=== PATIENT | female | born 1950 | race Caucasian/White ===

== ENCOUNTER → 2020-04-20 09:55 | Outpatient (BNVA) | payer MEDICARE, MEDICAID, SELFPAY | PROVIDERS: PCP Emergency Medicine; Referring Provider Emergency Medicine; Visit Provider Orthopaedic Surgery | DX: Z76.89 Persons encountering health services in other specified circumstances (principal) ==

== ENCOUNTER 2022-03-22 12:54 | Outpatient (REF) | payer MEDICARE, MEDICAID, SELFPAY ==
--- NOTE | ~2022-03-22 | MM_ITS ---
EXAMINATION: BONE DENSITOMETRY CLINICAL INDICATION: Asymptomatic menopausal state. COMPARISON: Baseline BD dated 06/05/2019. TECHNIQUE: Using a [employer] DXA System (software version: 13.1) manufactured by [employer], dual-energy x-ray absorptiometry was performed of the lumbar spine and left hip. The images are of good technical quality. Summary results are attached. FINDINGS: AP SPINE L1-L4: Current: BMD 1.128 g/cm2, Z-score 1.0, T-score -0.4, normal, 2.3% increase from baseline (<5% change is not significant). Baseline: BMD 1.103 g/cm2. LEFT FEMUR, NECK: Current: BMD 0.965 g/cm2, Z-score 1.0, T-score -0.5, normal. Baseline: BMD 0.971 g/cm2. LEFT FEMUR, TOTAL: Current: BMD 1.168 g/cm2, Z-score 2.6, T-score 1.3, normal, 2.3% increase from baseline (<5% change is not significant). Baseline: BMD 1.103 g/cm2. IDENTIFIED RISK FACTORS: Menopause, history of fracture (adult). HISTORY OF FRACTURE: Femur. MEDICATIONS: None listed. MM/XR DEXA axial skeleton IMPRESSION: 1. DIAGNOSIS: Normal bone density based on the lowest T-score value of -0.5 in the femoral neck applying World Health Organization criteria. 2. 10-YEAR FRACTURE RISK PREDICTION, FRAX: According to the guidelines, FRAX calculation should only be performed on patients in the osteopenia bone density category. Therefore, FRAX was not performed on this patient. 3. Treatment Recommendations: NOF guidelines recommend consideration for treatment in postmenopausal women and men age 50 and older presenting with the following: -A hip or vertebral (clinical or morphometric) fracture. -T-score less than or equal to -2.5 at the femoral neck or spine after appropriate evaluation to exclude secondary causes. -Low bone mass at the hip or spine and a 10-year fracture probability by FRAX of greater than or equal to 3% for hip fracture or greater than or equal to 20% for major osteoporotic fracture based on the [place] adapted WHO algorithm. 4. Other Recommendations: All treatment decisions require clinical judgment and consideration of individual patient factors, including patient preferences, comorbidities, previous drug use, risk factors not captured in the FRAX model (e.g. frailty, falls, vitamin D deficiency, increased bone turnover, interval significant decline in bone density) and possible under or overestimation of fracture risk by FRAX. FUTURE SCAN RECOMMENDATION: People with diagnosed cases of osteoporosis or at high risk for fracture should have regular bone mineral density tests. For patients eligible for Medicare, routine testing is allowed once every 2 years. The testing frequency can be increased to one year for patients who have rapidly progressing disease, those who are receiving or discontinuing medical therapy to restore bone mass, or have additional risk factors.
--- NOTE | ~2022-03-22 | MM_ITS ---
EXAMINATION: MM SCREENING DIGITAL BREAST TOMOSYNTHESIS, BILATERAL CLINICAL INFORMATION: Screening. Asymptomatic. The lifetime risk of breast cancer based on the Tyrer-Cuzick Model is 11%. COMPARISON: Mammography: 06/05/2019, outside mammography 03/21/2015 ([facility]). TECHNIQUE: Digital breast tomosynthesis is performed in both the craniocaudal and mediolateral oblique views along with computer-aided detection (CAD). Synthesized 2D images are generated from the tomosynthesis. FINDINGS: The breasts are heterogeneously dense, which may obscure small masses (ACR BI-RADS breast composition Category c). Parenchymal pattern is similar to prior studies and there is no interval mass or architectural abnormality or developing density. Again, there is a small intramammary node mid outer right breast on CC view. The axilla and skin contours are unremarkable. The right MLO view shows round calcifications mid lower right breast, lesser in number on CC view central aspect. Similarly, there are interval round calcifications anterior central left breast on MLO view but no grouped calcifications appreciated on left CC view. Patient will be recalled for additional imaging. MM/MM tomosynthesis screening BI IMPRESSION: Right: -Grouped round calcifications 6:00 position. -Otherwise unremarkable. Left: -Calcifications round retroareolar breast on MLO view. -Otherwise unremarkable. ASSESSMENT: BI-RADS 0: Incomplete - Need Additional Imaging Evaluation RECOMMENDATION: 1. Additional views of the bilateral breasts (magnification CC, magnification ML). 2. Radiology department staff will contact the patient for additional imaging. This patient's information was entered into a reminder system with a target due date for their next mammogram.
== END 2022-03-22 12:55 | disposition home or self-care (01) ==
LOC: HO.MAMMO 12:54
PROVIDERS: PCP Registered Nurse; Visit Provider Registered Nurse
DX: Z12.31 Encounter for screening mammogram for malignant neoplasm of breast (principal); Z13.820 Encounter for screening for osteoporosis; Z78.0 Asymptomatic menopausal state
CPT/HCPCS: 77063; 77067; 77080

== ENCOUNTER 2022-04-03 10:57 | Outpatient (REF) | payer MEDICARE, MEDICAID, SELFPAY ==
--- NOTE | ~2022-04-03 | MM_ITS ---
EXAMINATION: MM DIAGNOSTIC DIGITAL MAMMOGRAPHY, BILATERAL CLINICAL INFORMATION: Recall from screening for question of new grouped round calcifications 6:00 right breast and retroareolar left breast on synthesized 2-D images. COMPARISON: Digital breast tomosynthesis 03/22/2022, 06/05/2019. TECHNIQUE: Digital mammography is performed in the following views: Bilateral magnification CC, bilateral magnification ML. FINDINGS: The breasts are heterogeneously dense, which may obscure small masses (ACR BI-RADS breast composition Category c). Breast tissue composition borders on average fibroglandular in the areas of interest. Additional magnification views right breast show a few incidental small round calcifications central and lower breast without focal grouping or pleomorphic types or ductal distribution. Additional magnification views left breast demonstrate a few scattered small round calcifications retroareolar breast. There is no focal grouping or pleomorphic types or ductal distribution. Results are discussed with the patient at time of visit. MM/MM added views BI IMPRESSION: Additional views show no focal grouped or pleomorphic calcifications. Finding on recent synthesized images at screening are primarily related to pseudo calcifications from digital processing artifact. ASSESSMENT: BI-RADS 2: Benign RECOMMENDATION: Routine annual mammography screening. This patient's information was entered into a reminder system with a target due date for their next mammogram.
== END 2022-04-03 10:58 | disposition home or self-care (01) ==
LOC: HO.MAMMO 10:57
PROVIDERS: PCP Registered Nurse; Visit Provider Registered Nurse
DX: R92.1 Mammographic calcification found on diagnostic imaging of breast (principal)
CPT/HCPCS: 77066

== ENCOUNTER 2023-03-28 11:47 | Outpatient (REF) | payer MEDICARE, MEDICAID, SELFPAY ==
--- NOTE | ~2023-03-28 | MM_ITS ---
EXAMINATION: MM SCREENING DIGITAL BREAST TOMOSYNTHESIS, BILATERAL CLINICAL INFORMATION: Screening. Asymptomatic. COMPARISON: Mammography: 04/03/2022, 03/22/2022, 06/05/2019, (03/21/2015, 11/06/2012 [facility]). TECHNIQUE: Digital breast tomosynthesis is performed in both the craniocaudal and mediolateral oblique views along with computer-aided detection (CAD). Synthesized 2D images are generated from the tomosynthesis. FINDINGS: The breasts are heterogeneously dense, which may obscure small masses (ACR BI-RADS breast composition Category c). Again, there is an intramammary lymph node mid outer right breast the CC projection. This is unchanged. There are scattered benign type calcifications. No suspicious grouping. The overall parenchymal pattern is unchanged from prior exams. No skin or axillary changes. No suspicious masses or regions of architectural distortion. MM/MM tomosynthesis screening BI IMPRESSION: No significant changes from prior exam. No evidence of malignancy in either breast. Stable benign findings. ASSESSMENT: BI-RADS BI-RADS 2 - Benign Findings RECOMMENDATION: Routine annual mammography screening. 1 year F/U This examination should not preclude the clinical evaluation of a suspicious palpable abnormality. This patient's information was entered into a reminder system with a target due date for their next mammogram.
== END 2023-03-28 11:48 | disposition home or self-care (01) ==
LOC: HO.MAMMO 11:47
PROVIDERS: Visit Provider Registered Nurse
DX: Z12.31 Encounter for screening mammogram for malignant neoplasm of breast (principal)
CPT/HCPCS: 77063; 77067

== ENCOUNTER → 2023-03-28 12:15 | Outpatient (BNV) | payer MEDICARE, MEDICAID, SELFPAY | PROVIDERS: Visit Provider Radiology Diagnostic Radiology | DX: Z12.31 Encounter for screening mammogram for malignant neoplasm of breast (principal) | CPT/HCPCS: 77063; 77067 ==

== ENCOUNTER 2023-05-20 11:18 | Outpatient (REF) | payer MEDICARE, MEDICAID, SELFPAY ==
[2023-05-20 14:40] LABS: Iron 73 mcg/dL (30-160); Percent Iron Saturation 23 % (15-50); Total Iron Binding Capacity 315 mcg/dL (228-428); Unsaturated Iron Binding 242 ug/dL
[2023-05-20 14:55] LABS: Ferritin 166 ng/mL (10-250)
== END 2023-05-20 11:19 | disposition home or self-care (01) ==
LOC: HO.CHCLDS 11:18
PROVIDERS: Visit Provider Registered Nurse
DX: G25.81 Restless legs syndrome (principal); F45.8 Other somatoform disorders
CPT/HCPCS: 36415; 82728; 83540

== ENCOUNTER 2023-11-05 09:58 | Day surgery (SDC) | payer MEDICARE, MEDICAID, SELFPAY ==
--- NOTE | 2023-11-05 11:52 | MHC.SHP ---
Pre-Procedural Eval Section A - 24 Hr Update-Section A only Date of Service: 11/05/23 The patient is an INPATIENT: No Changes since office visit: No Cold of Flu in the past 2 weeks, No New Medical Problems, No Changes in Medication and No Patient answered all questions The patient has been examined within 24 hours of the surgical procedure. The History & Physical has been completed within 30 days and I have reviewed it.: Yes Section B - Complete if H&P > 30 days Chief Complaint: Other fecal abnormalities Allergies: Allergies Allergy/AdvReac Type Severity Reaction Status Date / Time bee pollen Allergy Unknown Verified 11/04/23 10:31 No Known Drug Allergies Allergy Unknown Verified 11/04/23 10:31 poison debby extract Allergy Unknown Verified 11/04/23 10:31 Plan I have reviewed the history and physical and performed a pertinent physical examination on my patient. No changes have occurred unless specified. Time Spent With Patient Time: Total time managing care of this patient today ____ minutes.
[2023-11-05 11:54] VITALS: BP 129/68; PULSE 87; RESP 18; TEMP 36.1; O2SAT 98; BMI 24.9
--- NOTE | 2023-11-05 12:43 | P.CONAN_ITS ---
FORMERLY [facility], [facility] Past Medical History Medical History (Updated 11/05/23 @ 12:14 by Caitie Jones RN) Femur fracture, right Osteoarthritis Hypertension Family History Family history of problems with anesthesia: No Surgical History Surgical History (Updated 11/05/23 @ 12:14 by Caitie Jones RN) H/O knee surgery Hx of colonoscopy History of Problems with Anesthesia: No Social History Social History Patient Tobacco Use Status: Never used Tobacco Are you DNR?: No Advance Directives: No Advance Directives Information Provided: Yes Nutrition Risks: No Nutritional Risk Meds Allergies Allergy/AdvReac Type Severity Reaction Status Date / Time bee pollen Allergy Unknown Verified 11/04/23 10:31 No Known Drug Allergies Allergy Unknown Verified 11/04/23 10:31 poison debby extract Allergy Unknown Verified 11/04/23 10:31 Home Medications ?Medication ?Instructions ?Recorded ?Confirmed ?Last Taken ?Type bupropion HCl 150 mg tablet,12 hr 150 mg PO QAM 04/19/20 11/05/23 11/04/23 History sustained-release (Wellbutrin SR) tramadol 50 mg tablet 50 mg PO DAILY 04/19/20 11/05/23 Unknown History doxepin 10 mg capsule 10 mg PO BEDTIME 11/05/23 11/05/23 10/08/23 History oxybutynin chloride 5 mg 5 mg PO DAILY 11/05/23 11/05/23 11/02/23 History tablet,extended release 24 hr topiramate 25 mg tablet 25 mg PO DAILY 11/05/23 11/05/23 11/02/23 History Exam Height,Weight and Vital Signs: Height 5 ft 7 in Weight 72.257 kg Last Vital Signs Temp 97 F 11/05/23 11:54 Pulse 87 11/05/23 11:54 Resp 18 11/05/23 11:54 BP 129/68 11/05/23 11:54 Pulse Ox 98 11/05/23 11:54 O2 Del Method Room Air 11/05/23 11:54 Airway Mallampati Class: II (caps front,) TM Dist: >3cm Neck ROM: Full Partial: Upper Heart: rrr Lungs: cta Assessment and Plan Assessment Anesthesia Assessment: Anesthesia Plan Discussed and Chart Reviewed Final Anesthetic Review Family History of Problems with Anesthesia: No History of Problems with Anesthesia: No NPO: Yes ASA Class: II Final Preanesthetic Review: No Changes in Pt Med Stat, Meds/Allgs Chart Reviewed and Consent Obtained/Reviewed Patient Risk: Low Procedure Risk: Low Anesthetic Plan Anesthetic Plan: MAC: Disposition: Standard PACU
[2023-11-05 13:23] VITALS: BP 85/43; PULSE 76; RESP 16; TEMP 36.3; O2SAT 96
[2023-11-05 13:38] VITALS: BP 99/62; PULSE 70; RESP 16; O2SAT 96
--- NOTE | 2023-11-05 13:50 | OP_ITS ---
DATE OF SERVICE: 11/05/2023 SURGEON: Robby Mcclendon MD INDICATIONS: Abnormal findings in stool. PREOPERATIVE DIAGNOSIS: POSTOPERATIVE DIAGNOSIS: PROCEDURE PERFORMED: Colonoscopy to the terminal ileum with biopsy. ESTIMATED BLOOD LOSS: COMPLICATIONS: ANESTHESIA: Monitored anesthesia care. ASSISTANTS: SPECIMENS: DESCRIPTION OF PROCEDURE: A history and physical was performed. The risks and benefits of the procedure were explained to the patient and informed consent was obtained. The patient was placed in the left lateral decubitus position. A digital rectal exam was performed and was found to be normal. The Olympus pediatric video colonoscope was introduced into the rectum and advanced to the cecum. The cecum was identified by transillumination, palpation, and identification of ileocecal valve. Examination was performed and the scope was removed. She tolerated the procedure well and was returned to recovery area in stable condition. FINDINGS: The terminal ileum was normal. The visualized colonic mucosa was within normal limits without evidence of masses or ulcers. There was some mild nonspecific erythema in the rectum, which could be prep related. This was biopsied. A few diverticula were seen in the sigmoid, which was somewhat tortuous. Retroflexed examination showed some small internal hemorrhoids. IMPRESSION: Normal colonoscopy. RECOMMENDATION: Follow up the biopsy results. Repeat colonoscopy in 10 yrs, for screening, optional after age 75. MD KAYLA Lopez/JANNA / [id number] MTDD
[2023-11-05 13:53] VITALS: BP 121/58; PULSE 72; RESP 16; TEMP 36.3; O2SAT 97
== END 2023-11-05 14:27 | disposition home or self-care (01) ==
PROVIDERS: PCP Registered Nurse; Visit Provider Internal Medicine Gastroenterology
PROC: 0DJD8ZZ Inspection of Lower Intestinal Tract, Via Natural or Artificial Opening Endoscopic (ICD-10-PCS; CPT 45378; principal; 2023-11-05 13:20)
DX: R19.5 Other fecal abnormalities (principal); K64.8 Other hemorrhoids; I10 Essential (primary) hypertension; Z79.899 Other long term (current) drug therapy; Q43.8 Other specified congenital malformations of intestine
CPT/HCPCS: 45380; 88305; J2704

== ENCOUNTER 2024-04-14 11:55 | Outpatient (REF) | payer MEDICARE, MEDICAID, SELFPAY ==
[2024-04-16 03:54] LABS: Lyme Blot 9.27 index
[2024-04-16 14:52] LABS: Lyme Abs Screen POSITIVE
[2024-04-16 22:18] LABS: 18 KD (IgG) Band REACTIVE; 23 KD (IgG) Band NON-REACTIVE; 23 KD (IgM) Band REACTIVE; 28 KD (IgG) Band REACTIVE; 30 KD (IgG) Band REACTIVE; 39 KD (IgM) Band REACTIVE; 39KD (IgG) Band REACTIVE; 41 KD (IgM) Band REACTIVE; 41KD (IgG) Band REACTIVE; 45 KD (IgG) Band REACTIVE; 58 KD (IgG) Band REACTIVE; 66 KD (IgG) Band REACTIVE; 93 KD (IgG) Band REACTIVE; Lyme IgG Blot Interp POSITIVE (NEGATIVE); Lyme IgM Blot Interp POSITIVE (NEGATIVE)
== END 2024-04-14 11:56 | disposition home or self-care (01) ==
LOC: HO.HHCL 11:55
PROVIDERS: Visit Provider Family Medicine
DX: A69.23 Arthritis due to Lyme disease (principal)
CPT/HCPCS: 36415; 86617; 86618

== ENCOUNTER 2024-05-07 14:41 | Outpatient (REF) | payer MEDICARE, MEDICAID, SELFPAY ==
[2024-05-07 18:04] LABS: C Reactive Protein 0.51 mg/dL (< or = 0.50)
[2024-05-07 18:37] LABS: Erythrocyte Sedimentation Rate 33 MM/HR (0-20)
--- OUTSIDE RECORDS SUMMARY | 2024-05-13 04:07 | XMS_ITS ---
Author Organization [facility] Address [address] [place] [address] Care Team Providers Care Music Mixer Name Role Phone KATRIN SUE MD Primary Care Provider UnavailRobby Wilkerson Jr [phone] REASON FOR VISIT abnormal findings in stool Encounters Encounter Location Date Provider Diagnosis [facility] [place] [address] [place] [phone] 11/05/2023 Robby Mcclendon Jr Abnormal stools R19.5 ASSESSMENTS Encounter Date Diagnosis Assessment Notes Treatment Notes Treatment Clinical Notes 11/05/2023 Abnormal stools (ICD-10 - R19.5) PLAN OF TREATMENT No Information
--- OUTSIDE RECORDS SUMMARY | 2024-05-13 04:07 | XMS_ITS ---
Author Organization [facility] Address [address] [place] [address] Care Team Providers Care Water Pumping Station Engineer Name Role Phone KATRIN SUE MD Primary Care Provider UnavailRobby Wilkerson Jr REASON FOR VISIT pathology Encounters Encounter Location Date Provider Diagnosis [facility] [address] [place] [address] 11/11/2023 Robby Mcclendon Jr PLAN OF TREATMENT No Information
--- OUTSIDE RECORDS SUMMARY | 2024-05-13 04:07 | XMS_ITS | Patient Health Record ---
Author Organization [facility] Address [address] [place] [address] Care Team Providers Care Box Maker Name Role Phone KATRIN SUE MD Primary Care Provider Robby Valenzuela Jr Unavailable ALLERGIES Allergen (clinical drug ingredient) Drug/Non Drug Allergy documented on EMR Reaction Allergy Type Onset Date Status bee pollen Bee Pollen Unknown Drug Allergy Activ e posion debby (uncoded) Unknown Allergy Active RESULTS Component Value Reference Range Notes Pathology Reviewed date:11/11/2023 08:56:07 AM Interpretation: Performing Lab:[facility], [address] [place] [id number] Notes/Report: REASON FOR REFERRAL No Information MEDICATIONS Medication SIG (Take, Route, Frequency, Duration) Notes Start Date End Date Status oxyBUTYnin Chloride ER 5 MG Oral for 90 Active buPROPion HCl ER (XL) 150 MG Oral for 90 Active Gabapentin 300 MG Oral for 90 Active MiraLax (colon prep) 17 GM/SCOOP mixed with Gatorade or Crystal Light Orally begin at 5:00 p.m. the day before the procedure for 1 day 10/18/2023 Active IMMUNIZATIONS Vaccine Route Administration Date Status Comme nts Influenza Unknown 10/18/2023 Refused SOCIAL HISTORY Tobacco Use: Social History Observation Description Date Details (start date - stop date) Never Smoker NA - NA Sex Assigned At : Social History Observation Description Sex Assigned At Unknown Tobacco Use/Smoking Question Answer Notes Patient is a nonsmoker Alcohol Screen Question Answer Notes Did you have a drink contain ing alcohol in the past year? Yes How often did you have a dri nk containing alcohol in the past year? Monthly or less (1 point) How many drinks did you have on a typical day when you were drinking in the past year? 1 or 2 drinks (0 point) How often did you have 6 or more drinks on one occasion in the past year? Never (0 point) Points 1 Interpretation Negative PROBLEMS Problem Type ICD Code Onset Dates Problem Status W/U Status Risk SNOMED Code Notes Problem Abnormal findings in stool (R19.5) Active confirmed [id number] VITAL SIGNS Temperature 98.4 degrees Fahrenheit 10/18/2023 Blood pressure diastolic 00 mm Hg 10/18/2023 Height 5 ft 7 in in 10/18/2023 Blood pressure systolic 000 mm Hg 10/18/2023 Weight 164 lbs 10/18/2023 BMI 25.68 kg/m2 10/18/2023 Encounters Encounter Location Date Provider Diagnosis [facility] [place] [address] [place], [place] [phone] 11/05/2023 Robby Mcclendon Jr Abnormal stools R19.5 [facility] [address] [place] [phone] 10/18/2023 Robby Mcclendon Jr Abnormal findings in stool R19.5 [facility] [address] [place] [phone] 11/11/2023 Robby Mcclendon Jr ASSESSMENTS Encounter Date Diagnosis Assessment Notes Treatment Notes Treatment Clinical Notes 11/05/2023 Abnormal stools (ICD-10 - R19.5) 10/18/2023 Abnormal findings in stool (ICD-10 - R19.5) Fecal immunochemical test (FIT) material was printed PLAN OF TREATMENT Future Test Test Name Order Date COLONOSCOPY 10/18/2023 Insurance Providers Payer Name Payer Address Payer Phone Subscriber Number Group Number Insured Name Patient Relationship to Insured Coverage Start Date Coverage End Date MEDICARE OF [place] [address] [place] [id number] EMMA RICHTER Self - patient is the insured MEDICAID OF [facility] [address] [place] [phone] [id number] EMMA RICHTER Self - patient is the insured MEDICAL (GENERAL) HISTORY Medical History History ICD Code Anxiety/depression Overactive bladder Osteoarthritis Hypertension Hyperlipidemia Surgical History Surgery Date(Month/Year) partial knee left 2 years broken leg right 10 year
--- OUTSIDE RECORDS SUMMARY | 2024-05-13 04:07 | XMS_ITS ---
Author Organization [facility] Address [address] [place] [address] Care Team Providers Care Draw Hand Name Role Phone KATRIN SUE MD Primary Care Provider Robby Valenzuela Jr Unavailable ALLERGIES Allergen (clinical drug ingredient) Drug/Non Drug Allergy documented on EMR Reaction Allergy Type Onset Date Status bee pollen Bee Pollen Unknown Drug Allergy Activ e posion debby (uncoded) Unknown Allergy Active REASON FOR VISIT Patient presents today for a positive stool cards MEDICATIONS Medication SIG (Take, Route, Frequency, Duration) [...] Abnormal findings in stool (R19.5) Active confirmed [id number] VITAL SIGNS BMI 25.68 kg/m2 10/18/2023 Blood pressure systolic 000 mm Hg 10/18/19 24 Blood pressure diastolic 00 mm Hg 024 Height 5 ft 7 in in 10/18/2023 Temperature 98.4 degrees Fahrenheit 10/18/19 24 Weight 164 lbs 10/18/2023 Encounters Encounter Location Date Provider Diagnosis [facility] [address] [place] [address] 10/18/2023 Robby Mcclendon Jr Abnormal findings in stool R19.5 ASSESSMENTS Encounter Date Diagnosis Assessment Notes Treatment Notes Treatment Clinical Notes 10/18/2023 Abnormal findings in stool (ICD-10 - R19.5) Fecal immunochemical test (FIT) material was printed PLAN OF TREATMENT Medication Medication Name Sig Start Date Stop Date Notes MiraLax (colon prep) 17 GM/SCOOP mixed with Gatorade or Crystal Light Orally begin at 5:00 p.m. the day before the procedure for 1 day 10/18/2023 Treatment Notes Assessment Notes Abnormal findings in stool Fecal immunoc hemical test (FIT) material was printed Future Test Test Name Order Date COLONOSCOPY 10/18/2023 Next Appt Details Follow Up: 1 Year, Reason: Progress Notes * Examination Category Sub-Category Detail Notes General Examination GENERAL APPEARANCE: in no ac belgica distress HEAD: normocephalic EYES: sclera non-icteric NECK/THYROID: no lymphadenopathy HEART: S1, S2 normal, no mu rmurs CHEST: normal shape and exp ansion LUNGS: clear to auscultatio n bilaterally ABDOMEN: soft, nontender, non distended, bowel sounds present, no organomegaly SKIN: anicteric EXTREMITIES: no clubbing, cyanosi s, or edema PSYCH: cognitive function i ntact ORAL CAVITY: mucosa moist
== END 2024-05-07 14:42 | disposition home or self-care (01) ==
LOC: HO.CHCLDS 14:41
PROVIDERS: Visit Provider Pediatrics
DX: A69.23 Arthritis due to Lyme disease (principal)
CPT/HCPCS: 36415; 85652; 86140

== ENCOUNTER 2024-11-16 11:01 | Outpatient (REF) | payer MEDICARE, MEDICAID, SELFPAY ==
[2024-11-17 07:39] LABS: Lyme Blot >10.00 index
[2024-11-17 12:02] LABS: Lyme Abs Screen POSITIVE
[2024-11-17 22:09] LABS: 18 KD (IgG) Band REACTIVE; 23 KD (IgG) Band NON-REACTIVE; 23 KD (IgM) Band NON-REACTIVE; 28 KD (IgG) Band REACTIVE; 30 KD (IgG) Band REACTIVE; 39 KD (IgM) Band REACTIVE; 39KD (IgG) Band REACTIVE; 41 KD (IgM) Band REACTIVE; 41KD (IgG) Band REACTIVE; 45 KD (IgG) Band REACTIVE; 58 KD (IgG) Band REACTIVE; 66 KD (IgG) Band REACTIVE; 93 KD (IgG) Band REACTIVE; Lyme IgG Blot Interp POSITIVE (NEGATIVE); Lyme IgM Blot Interp POSITIVE (NEGATIVE)
== END 2024-11-16 11:02 | disposition home or self-care (01) ==
LOC: HO.CHCLDS 11:01
PROVIDERS: Visit Provider Registered Nurse
DX: A69.23 Arthritis due to Lyme disease (principal)
CPT/HCPCS: 36415; 86617; 86618

== ENCOUNTER 2025-04-19 14:41 | Outpatient (REF) | payer MEDICARE, SELFPAY ==
[2025-04-19 18:01] LABS: MANUAL DIFF FLAG NO
[2025-04-19 18:27] LABS: Hematocrit 39.5 % (37.0-47.0); Hemoglobin 12.7 g/dl (12.0-16.0); Imm Gran Abs Auto 0.01 X10*3/uL (0.00-0.03); Imm Gran Pct Auto 0.2 % (0.0-0.4); Lymphocytes Absolute Auto 2.2 X10*3/uL (1.2-4.9); Mean Corpuscular HGB Conc 32.2 g/dl (31.0-35.0); Mean Corpuscular Hemoglobin 28.7 pg (27.0-33.0); Mean Corpuscular Volume 89.2 fL (80.0-98.0); NRBC Abs Auto 0.000 X10*3/uL (0.0-0.012); NRBC Pct Auto 0.0 /100WBC (0.0-0.2); Platelet Count 166 X10*3/uL (160-400); Red Blood Count 4.43 X10*6/uL (4.20-5.50); White Blood Count 5.4 X10*3/uL (4.8-10.8)
[2025-04-19 18:38] LABS: Hemoglobin A1C 80.0958 umol/L
[2025-04-19 18:55] LABS: Alanine Aminotransferase 21 U/L (0-31); Albumin Level 4.5 g/dL (3.5-5.0); Alkaline Phosphatase 72 U/L (39-117); Anion Gap 11 (12-20); Aspartate Amino Transferase 42 U/L (5-31); Blood Urea Nitrogen 14 mg/dL (9-16); Calcium 9.5 mg/dL (8.4-10.2); Carbon Dioxide 28 mmol/L (22-29); Chloride 106 mmol/L (96-108); Cholesterol 271 mg/dL (<200); Estimated Glomerular Filt Rate > 60; HDL Cholesterol 78 mg/dL (>40); Potassium 3.8 mmol/L (3.3-5.1); Sodium 141 mmol/L (135-145); Total Protein 7.6 g/dL (6.5-8.0); Triglycerides 114 mg/dL (<150)
--- OUTSIDE RECORDS SUMMARY | 2025-04-20 04:57 | XMS_ITS | Clinical Summary ---
Author Organization [facility] Address [address] [id number] Care Team Providers Care Char House Supervisor Name Role Phone Unavailable Primary Care Provider Unavailabl e Social History Tobacco Use Types Packs/Day Years Used Date Smoking Tobacco: Never Assessed Comments Unknown Sex and Gender Information Value Date Recorded Sex Assigned at Not on file Legal Sex Female 10:12 PM EDT Gender Identity Not on file Sexual Orientation Not on file Plan of Treatment Health Maintenance Due Date Last Done Comments Hepatitis C Screening 1950 DTaP/Tdap/Td (1 - Tdap) 1969 Mammogram/Breast Imaging 1991 Pneumococcal 50+ years (1 of 1 - PCV) 2001 Zoster (Shingrix) (1 of 2) 2001 Bone Density 2016 COVID-19 Vaccine ( - 2024-2 6 season) 2025 Influenza (#1) 2025 RSV (1 - 1-dose 75+ series) 2026 HPV Vaccine (No Doses Required) Completed Hep A Aged Out No longer eligi ble based on patient's age to complete this topic Hep B Aged Out No longer eligi ble based on patient's age to complete this topic Hib Aged Out No longer eligi ble based on patient's age to complete this topic Meningococcal ACWY Aged Out No longer eligible based on patient's age to complete this topic Pap Smear Discontinued Zoster (Zostavax) Discontinued
== END 2025-04-19 14:42 | disposition home or self-care (01) ==
LOC: HO.CHCLDS 14:41
PROVIDERS: Visit Provider Registered Nurse
DX: Z00.00 Encounter for general adult medical examination without abnormal findings (principal); Z13.1 Encounter for screening for diabetes mellitus; Z13.6 Encounter for screening for cardiovascular disorders; Z13.29 Encounter for screening for other suspected endocrine disorder
CPT/HCPCS: 36415; 80053; 80061; 83036; 84443; 85025